=== PATIENT | male | born 1980 | race Caucasian/White ===

== ENCOUNTER → 2017-09-08 | Outpatient (CLI) | payer BC, OTHER ==
[~2017-09-08] MED LIST: ACYC-114 PO; clomid PO; testosterone IM
== END ==
LOC: STAR 12:44
PROVIDERS: ATTEND Orthopaedic Surgery
DX: Z02.9 Encounter for administrative examinations, unspecified (principal)

== ENCOUNTER 2017-09-13 07:08 | Day surgery (SDC) | payer BC, OTHER ==
[2017-09-08 13:09] VITALS: BP 139/84
[~2017-09-13] VITALS: Ht 182.9 cm; Wt 83.0 kg
[2017-09-13] MEDS ORDERED: LIDOCAINE/PF 1%-EPI 1:200K, 30 ML ONE (07:18)
[2017-09-13] MEDS ORDERED: MIDAZOLAM 1 MG/ML, 2ML ONE (07:29)
[2017-09-13] MEDS ORDERED: FENTANYL PF 250 MCG/5ML ONE (07:29)
[2017-09-13] MEDS ORDERED: ONDANSETRON 2MG/ML, 2ML ONE (07:30)
[2017-09-13] MEDS ORDERED: CEFAZOLIN 1,000 MG ONE (07:30)
[2017-09-13] MEDS ORDERED: PROPOFOL 10 MG/ML, 20ML ONE (07:30)
[2017-09-13] MEDS ORDERED: BUPIVACAINE/PF 0.5% ONE (07:30)
[2017-09-13] MEDS ORDERED: DEXAMETHASONE 4 MG/ML, 1ML ONE (07:30)
[2017-09-13] MEDS ORDERED: LIDOCAINE-MPF 2% ,5ML ONE (07:30)
[2017-09-13] MEDS ORDERED: LACTATED RINGERS 1,000 ML IV SCH (07:39)
[2017-09-13] MEDS ORDERED: LIDOCAINE 1%, 2ML SQ PRN (08:00)
[2017-09-13] MEDS ORDERED: ROCURONIUM 10 MG/ML,10ML ONE (08:49)
[2017-09-13] MEDS ORDERED: SUCCINYLCHOLINE 20 MG/ML, 10ML ONE (08:49)
[2017-09-13] MEDS ORDERED: CLINDAMYCIN 150 MG/ML, 6ML ONE (09:08)
[2017-09-13] MEDS ORDERED: ROPIvacaine/PF 0.5%, 30 ML INFIL ONE (09:16)
[2017-09-13] MEDS ORDERED: DIAZEPAM 5 MG/ML, 2ML IVPush PRN (09:30)
[2017-09-13] MEDS ORDERED: ALBUTEROL/IPRATROPIUM 2.5MG/0.5MG, 3 ML NPPB PRN (09:30)
[2017-09-13] MEDS ORDERED: METOCLOPRAMIDE 5 MG/ML, 2ML IV PRN (09:30)
[2017-09-13] MEDS ORDERED: OXYcodone 5 MG/5 ML ORAL.SOL UDC PO PRN (09:30)
[2017-09-13] MEDS ORDERED: MIDAZOLAM 1 MG/ML, 2ML IV PRN (09:30)
[2017-09-13] MEDS ORDERED: ACETAMINOPHEN 325 MG TABLET PO PRN (09:30)
[2017-09-13] MEDS ORDERED: LABETALOL 5MG/ML, 20ML IV PRN (09:30)
[2017-09-13] MEDS ORDERED: KETOROLAC 30 MG/1 ML IV PRN (09:30)
[2017-09-13] MEDS ORDERED: LORazepam 2 MG/ML, 1ML IVPush PRN (09:30)
[2017-09-13] MEDS ORDERED: MEPERIDINE/PF 25MG/0.5ML IVPush PRN (09:30)
[2017-09-13] MEDS ORDERED: ONDANSETRON 2MG/ML, 2ML IVPush PRN (09:30)
[2017-09-13] MEDS ORDERED: HYDROmorphone 1 MG/ML, 1ML IV PRN (09:30)
[2017-09-13] MEDS ORDERED: FENTANYL PF 100 MCG/2ML IV PRN (09:30)
[2017-09-13] MEDS ORDERED: PROMETHAZINE 25 MG/ML, 1ML IV PRN (09:30)
[2017-09-13] MEDS ORDERED: OXYcodone 5 MG/5 ML ORAL.SOL UDC ONE (10:32)
[2017-09-13] MEDS ORDERED: ACETAMINOPHEN 650 MG/20.3 ML UDC ONE (10:33)
[2017-09-13] MEDS ORDERED: KETOROLAC 30 MG/1 ML ONE (11:16)
[2017-09-13] MEDS ORDERED: PROMETHAZINE 25 MG/ML, 1ML ONE (12:15)
[2017-09-13] MEDS ORDERED: PROMETHAZINE 25 MG/ML, 1ML IM PRN (12:30)
== END 2017-09-13 13:40 | disposition home or self-care (01) ==
LOC: OUT 07:08
PROVIDERS: ATTEND Orthopaedic Surgery
DX: M75.112 Incomplete rotator cuff tear or rupture of left shoulder, not specified as traumatic (principal); M75.42 Impingement syndrome of left shoulder; M75.52 Bursitis of left shoulder; M65.812 Other synovitis and tenosynovitis, left shoulder; M24.112 Other articular cartilage disorders, left shoulder
CPT/HCPCS: 29822; 29826; 29827; J0330; J0690; J1100; J1885; J2250; J2405; J2550; J2704; J2795; J3010; J3490

== ENCOUNTER → 2018-10-20 | Outpatient (CLI) | payer OTHER ==
[~2018-10-20] MED LIST changes: +GADOBUTROL 10 MMOL/10 ML PFS ONE
== END | disposition home or self-care (01) ==
LOC: CFH 07:04
PROVIDERS: ATTEND Registered Nurse
DX: R41.3 Other amnesia (principal)
CPT/HCPCS: 70553; A9585